=== PATIENT | female | born 1995 | race Caucasian/White ===

== ENCOUNTER 2021-07-07 15:25 | Emergency (ER) | payer BC, SELFPAY ==
--- NOTE | ~2021-07-07 | XR_ITS ---
XR foot RT min 3V DATE: 07/07/2021 15:47 INDICATION: Dropped object on foot. Dorsal mid to distal right foot pain TECHNIQUE: 4 views COMPARISON: None FINDINGS: No fracture or dislocation, periosteal reaction or bone destruction. 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 Joint spaces otherwise are preserved. No erosive change or chondrocalcinosis. IMPRESSION: No fracture or dislocation Reviewed, dictated and finalized at location A. MATION CLERK IMPRESSION: No fracture or dislocation
[2021-07-07 15:36] VITALS: BP 127/74; PULSE 74; RESP 16; TEMP 36.8; O2SAT 100
--- NOTE | 2021-07-07 16:31 | ED.GENADULT ---
HPI - General Adult General Chief complaint: Extremity Injury, Lower Stated complaint: rt foot inj Source: patient Mode of arrival: ambulatory Limitations: no limitations History of Present Illness HPI narrative: Patient presents for evaluation of right foot pain since yesterday. She indicates she was unloading refrigerator out of a truck when it fell landed on her right foot. She needed assistance getting off of her foot. Since that time she has noted constant pain in the affected area. At rest her pain is 2 out of 10 in severity with increased to 4 out of 10 in severity with weightbearing. No descriptive quality of the pain. No paresthesia. No loss of ROM. She has OTC agents available at home, which have seemed to help. No additional complaints or concerns. Related Data Home Medications Medication Instructions Recorded Confirmed sertraline 200 mg PO DAILY 07/07/21 07/07/21 Allergies Allergy/AdvReac Type Severity Reaction Status Date / Time No Known Allergies Allergy Verified 07/07/21 15:36 Review of Systems Review of Systems: CONSTITUTIONAL: Denies fever, chills, or sweats. EYES: Denies visual changes, redness, or discharge. ENT: Denies rhinorrhea, congestion, sore throat, or otalgia. CARDIOVASCULAR: Denies chest pain, palpitations, or edema. RESPIRATORY: Denies cough or dyspnea. GASTROINTESTINAL: Denies abdominal pain, nausea, vomiting, or diarrhea. GENITOURINARY: Denies dysuria or hematuria. SKIN: Denies rash or itching. MUSCULOSKELETAL: Reports right foot pain. Denies right ankle pain NEUROLOGIC: Denies headache, numbness, dizziness, or weakness. PSYCHIATRIC: Denies anxiety or depression. [facility] Past Medical History Medical History (Updated 07/07/21 @ 16:35 by MAXIMILIAN De Los Santos, JOSETTE) No pertinent past medical history Surgical History Surgical History No pertinent past surgical history Family History Family History Mother Lupus Social History Social History Smoking status: Never smoker Alcohol intake: current Alcohol use details: social Substance use: never Gender identity (if verbalized by the patient): Female Spiritual care concerns: No Exam Narrative: GENERAL: Well-appearing, well-nourished, and in no acute distress. HEAD: Normocephalic, atraumatic. EYES: PERRLA and EOMI. ENT: Nares clear, no rhinorrhea or epistaxis. Mucous membranes moist. Oropharynx without tonsillar hypertrophy exudate or other lesions. Bilateral TMs pearly poe nonbulging NECK: Supple. No adenopathy or masses. No carotid bruits or JVD CHEST: Clear to auscultation. No respiratory distress. No wheezes rales or rhonchi HEART: Regular rate and rhythm. No murmur heard. Normal peripheral pulses. ABDOMEN: Soft, nontender, nondistended, normal active bowel sounds. EXTREMITIES: Tenderness noted to dorsal aspect of proximal right foot. Trace swelling noted to dorsal aspect of the right foot normal range of motion. SKIN: Warm, dry, no rash. NEURO: No focal deficits. Alert and oriented x3. PSYCH: Normal mood and affect. Course Course Emergency Course: This is a 26-year-old female who presented with complaints of right foot pain after a refrigerator fell on her foot yesterday. X-ray was negative for fracture. Offered postop shoe which she declined. Offered analgesics, which she declined. She advised on rice therapy. She should follow-up outpatient for further evaluation treatment return for worsening symptoms. Patient agreed with plan of care. Level of Care: Express Care Visit Vital Signs Vital signs: Vital Signs Temperature 36.8 C 07/07/21 15:36 Pulse Rate 74 07/07/21 15:36 Respiratory Rate 16 07/07/21 15:36 Blood Pressure 127/74 07/07/21 15:36 Pulse Oximetry 100 07/07/21 15:36 Temperature 36.8
== END 2021-07-07 16:40 | disposition home or self-care (01) ==
PROVIDERS: Emergency Provider Nurse Practitioner
DX: S90.31XA Contusion of right foot, initial encounter (principal); W20.8XXA Other cause of strike by thrown, projected or falling object, initial encounter
CPT/HCPCS: 73630; 99213; G0463